=== PATIENT | female | born 1940 ===

== ENCOUNTER 2023-03-16 05:55 | Day surgery (SDC) | payer OTHER ==
[~2023-03-16 05:55] MED LIST: HORIZANT300 MG PO; HYZAAR 50-12.1 UDTAB PO; PRILOSEC OTC20 MG PO; TYLENOL ARTHRI650 MG PO; ZANTAC150 M3 PO
[2023-03-16] MEDS ORDERED: TRAM1TAB98 PO (11:15)
== END 2023-03-16 15:45 | disposition home or self-care (01) ==
LOC: CIR.AMB 05:55
PROVIDERS: ATTEND Obstetrics & Gynecology Gynecology
DX: N81.6 Rectocele (principal); N81.5 Vaginal enterocele; R23.4 Changes in skin texture; Z20.822 Contact with and (suspected) exposure to COVID-19